=== PATIENT | female | born 1930 | race Hispanic/Latino ===

== ENCOUNTER 2017-07-25 14:40 | Inpatient (IN) | payer MEDICARE, BC ==
[2017-07-25 18:09] VITALS: BMI 34.5
--- NOTE | 2017-07-25 22:32 | CP.PCM.HP ---
<Jennifer Bridges - Last Filed: 07/25/17 23:46> History of Present Illness - History of Present Illness History of Present Illness: 86 y/o F with PMHx of HTN, HLD, and TIA ( 9-10 years ago) who was transferred from [facility] for rehabilitation. Patient was admitted in [facility] on 07[place]17 because she was c/o right side facial droop to r/o CVA. 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 Also elevated RPR was noted. Patient was seen and examined at bedside after transfer. Patient is seen alert, oriented x 3, talking with coherent speech, and without difficulty. Denies any complains at this evaluation. PMD: Dr. Osman Present on Admission - Present on Admission Any Indicators Present on Admission: No History of DVT/PE: No History of Uncontrolled Diabetes: No Urinary Catheter: No Decubitus Ulcer Present: No Review of Systems - Review of Systems All systems: reviewed and no additional remarkable complaints except (as per HPI ) Meds Allergies/Adverse Reactions: Allergies Allergy/AdvReac Type Severity Reaction Status Date / Time No Known Allergies Allergy Verified 07/25/17 17:54 Physical Exam - Constitutional Appears: Non-toxic, No Acute Distress - Eye Exam Eye Exam: Normal appearance - ENT Exam ENT Exam: Mucous Membranes Moist - Respiratory Exam Respiratory Exam: Clear to Auscultation Bilateral, NORMAL BREATHING PATTERN. absent: Rales, Rhonchi, Wheezes, Respiratory Distress - Cardiovascular Exam Cardiovascular Exam: REGULAR RHYTHM, RRR, +S1, +S2 - GI/Abdominal Exam GI & Abdominal Exam: Normal Bowel Sounds, Soft. absent: Guarding, Rebound, Rigid, Tenderness - Extremities Exam Extremities exam: Positive for: normal inspection. Negative for: calf tenderness, pedal edema - Back Exam Back exam: NORMAL INSPECTION. absent: CVA tenderness (L), CVA tenderness (R) - Neurological Exam Neurological exam: Alert, Oriented x3 - Psychiatric Exam Psychiatric exam: Normal Affect, Normal Mood - Skin Skin Exam: Dry, Intact, Normal Color Assessment & Plan - Assessment and Plan (Free Text) Assessment: 86 y/o F with PMHx of HTN, HLD, and TIA being admitted for rehabilitation. Plan: Gait abnormality and weakness -acute rehab unit -PT/OT evaluation and treatment CVA -stable -as per [facility] records Brain MRI showed small acute left frontoparietal infarct. No associated mass effect -normal CT angiogram head on 07/21/17 -as per records Head CT scan showed no evidence of acute findings -c/w meds -c/w aspirin and plavix -c/w atorvastatin -Neurology consult, Dr. Peck, as needed, will be appreciated RPR + - positive RPR noted in recent hospital admission at [facility] as per records -ID consult, Dr. Calderon, as needed, will be appreciated HTN -c/w lisinopril 5 mg HLD -c/w atorvastatin DVT prophylaxis Lovenox 40 mg SC - Date & Time Date: 07/25/17 Time: 22:35 <Jerome Osman - Last Filed: 07/26/17 07:02> Results - Vital Signs Recent Vital Signs: Last Vital Signs Temp Pulse 81 07/25/17 23:37 Resp 20 07/25/17 23:37 BP Pulse Ox 97 07/25/17 23:37 - Labs Result Diagrams: 07/26/17 05:15 07/26/17 05:15 Labs: Laboratory Results - last 24 hr 07/26/17 07/26/17 05:15 05:15 WBC 7.8 RBC 4.61 Hgb 13.3 Hct 40.2 MCV 87.2 MCH 28.8 MCHC 33.1 RDW 15.9 H Plt Count 202 Sodium 142 Potassium 4.0 Chloride 108 H Carbon Dioxide 26 Anion Gap 12 BUN 14 Creatinine 0.9 Est GFR ( Amer) > 60 Est GFR (Non-Af Amer) 59 Random Glucose 166 H Calcium 9.0 Attending/Attestation - Attestation I have personally seen and examined this patient.: Yes I have fully participated in the care of the patient.: Yes I have reviewed all pertinent clinical information: Yes
[2017-07-25] MEDS ORDERED: Patient's Own Med (Atorvastatin [Lipitor] 80 MG) PO SCH (22:45)
[2017-07-26 06:26] LABS: HEMATOCRIT 40.2 % (34.0-47.0); MEAN CELL VOLUME 87.2 fl (81.0-99.0); MEAN CORPUSCULAR HEMOGLOBIN 28.8 pg (27.0-31.0); MEAN CORPUSCULAR HGB CONC 33.1 g/dL (33.0-37.0); RED CELL DISTRIBUTION WIDTH 15.9 % (11.5-14.5); WHITE BLOOD COUNT 7.8 K/uL (4.8-10.8)
[2017-07-26 06:45] LABS: BLOOD UREA NITROGEN 14 mg/dl (7-17); CARBON DIOXIDE 26 mmol/L (22-30); CHLORIDE 108 mmol/L (98-107); GFR AFRICAN-AMERICAN > 60; GLUCOSE,RANDOM 166 mg/dL (65-105); SODIUM 142 mmol/l (132-148)
--- NOTE | 2017-07-26 08:24 | CP.PCM.PN ---
<TimboChicho - Last Filed: 07/26/17 12:11> Subjective - Date & Time of Evaluation Date of Evaluation: 07/26/17 Time of Evaluation: 07:00 - Subjective Subjective: 86 y/o F admitted last night, [place] [facility] [place]. Patient stable, talking in full sentences, coherent, not acute distress. Denies headache, dizziness, CP, palpitations. Will start PT treatment today. Objective - Vital Signs/Intake and Output Vital Signs (last 24 hours): Temp Pulse Resp BP Pulse Ox 81 20 97 07/25/17 23:37 07/25/17 23:37 07/25/17 23:37 - Medications Medications: Current Medications Acetaminophen (Tylenol 325mg Tab) 650 mg PO Q6 PRN PRN Reason: Headache Aspirin (Aspirin Chewable) 81 mg PO DAILY [facility] Atorvastatin Calcium (Lipitor) 80 mg PO HS [facility] Last Admin: 07/26/17 00:09 Dose: 80 mg Clopidogrel Bisulfate (Plavix) 75 mg PO DAILY [facility] Enoxaparin Sodium (Lovenox) 40 mg SC DAILY [facility] PRN Reason: Protocol Lisinopril (Zestril) 5 mg PO DAILY [facility] Pantoprazole Sodium (Protonix Ec Tab) 40 mg PO DAILY [facility] - Labs Labs: 07/26/17 05:15 07/26/17 05:15 - Constitutional Appears: Non-toxic, No Acute Distress - Head Exam Head Exam: ATRAUMATIC - Eye Exam Eye Exam: EOMI, Normal appearance - ENT Exam ENT Exam: Mucous Membranes Moist - Respiratory Exam Respiratory Exam: Clear to Ausculation Bilateral, NORMAL BREATHING PATTERN. absent: Rales, Wheezes - Cardiovascular Exam Cardiovascular Exam: REGULAR RHYTHM, +S1, +S2. absent: Murmur - GI/Abdominal Exam GI & Abdominal Exam: Soft, Normal Bowel Sounds. absent: Distended, Tenderness - Extremities Exam Extremities Exam: Normal Capillary Refill. absent: Calf Tenderness - Neurological Exam Neurological Exam: Alert, Awake, Oriented x3 Additional comments: Drop of the corner of the mouth to right side. Mild UE weakness. - Psychiatric Exam Psychiatric exam: Normal Affect, Normal Mood - Skin Skin Exam: Normal Color, Warm Assessment and Plan - Assessment and Plan (Free Text) Assessment: 86 y/o F with PMHx of HTN, HLD, and TIA being admitted for rehabilitation. Gait abnormality and generalized weakness -acute rehab unit for post stroke rehab -PT/OT evaluation and treatment CVA, acute, ischemic -stable -Brain MRI showed small acute left frontoparietal infarct. No associated mass effect -normal CT angiogram head on 07/21/17 -c/w meds -c/w aspirin and plavix -c/w atorvastatin -Neurology consulted. Will f/u recs RPR + -RPR + noted in [place] [facility] [place]FTA[place]AB[place] [facility] [place], results pending -ID consult, Dr. Calderon, as needed, will be appreciated HTN -Chronic, controlled -c/w lisinopril 5 mg Hx of HLD -c/w atorvastatin DVT prophylaxis -Lovenox 40 mg SC <Jerome Osman - Last Filed: 07/31/17 16:42> Objective - Vital Signs/Intake and Output Vital Signs (last 24 hours): Temp Pulse Resp BP Pulse Ox 97.5 F L 80 19 139/73 94 L 07/31/17 08:46 07/31/17 08:46 07/31/17 08:46 07/31/17 08:46 07/31/17 08:46 - Medications Medications: Current Medications Acetaminophen (Tylenol 325mg Tab) 650 mg PO Q6 PRN PRN Reason: Headache Al Hydrox/Mg Hydrox/Simethicone (Maalox Plus 30 Ml) 30 ml PO Q6 PRN PRN Reason: Indigestion / Heartburn Aspirin (Aspirin Chewable) 81 mg PO DAILY [facility] Last Admin: 07/31/17 08:38 Dose: 81 mg Atorvastatin Calcium (Lipitor) 80 mg PO HS [facility] Last Admin: 07/30/17 21:05 Dose: 80 mg Clopidogrel Bisulfate (Plavix) 75 mg PO DAILY [facility] Last Admin: 07/31/17 08:39 Dose: 75 mg Enoxaparin Sodium (Lovenox) 40 mg SC DAILY [facility] PRN Reason: Protocol Last Admin: 07/31/17 08:38 Dose: 40 mg Lisinopril (Zestril) 5 mg PO DAILY [facility] Last Admin: 07/31/17 08:39 Dose: 5 mg Pantoprazole Sodium (Protonix Ec Tab) 40 mg PO DAILY [facility] Last Admin: 07/31/17 08:38 Dose: 40 mg - Labs Labs: 07/29/17 05:30 07/29/17 06:30 Attending/Attestation - Attestation I have personally seen and examined this patient.: Yes I have fully participated in the care of the patient.: Yes I have reviewed all pertinent clinical information, including history, physical exam and plan: Yes
[2017-07-26] MEDS: Pantoprazole 40 mg EC Tab PO SCH (08:37)
[2017-07-26] MEDS: Enoxaparin 40 mg Syringe SC SCH (09:05)
--- NOTE | 2017-07-26 12:12 | CP.PCM.CON ---
History of Present Illness - History of Present Illness History of Present Illness: 86 y/o F with PMHx of HTN, HLD, and TIA ( 9-10 years ago) who was transferred from [facility] for rehabilitation. [place] [facility] [place] because she was c/o right side facial droop to r/o CVA. 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 Also elevated RPR was noted. Patient was seen and examined at bedside after transfer. Patient is seen alert, oriented x 3, talking with coherent speech, and without difficulty. Denies any complains at this evaluation. 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 from her Mom at time of and was reportedly treated without sequelae Titer was 1:2 fta-abs PENDING Review of Systems - Constitutional Constitutional: As Per HPI - EENT Eyes: absent: As Per HPI, Blind Spots, Blurred Vision, Change in Vision, Decreased Night Vision, Diplopia, Discharge, Dry Eye, Exophthalmos, Floaters, Irritation, Itchy Eyes, Loss of Peripheral Vision, Pain, Photophobia, Requires Corrective Lenses, Sees Flashes, Spots in Vision, Tunnel Vision, Other Visual Disturbances, Loss of Vision, Other Ears: absent: As Per HPI, Decreased Hearing, Ear Discharge, Ear Pain, Tinnitus, Abnormal Hearing, Disequilibrium, Dizziness, Other Nose/Mouth/Throat: absent: As Per HPI, Epistaxis, Nasal Congestion, Nasal Discharge, Nasal Obstruction, Nasal Trauma, Nose Pain, Post Nasal Drip, Sinus Pain, Sinus Pressure, Bleeding Gums, Change in Voice, Dental Pain, Dry Mouth, Dysphagia, Halitosis, Hoarsness, Lip Swelling, Mouth Lesions, Mouth Pain, Odynophagia, Sore Throat, Throat Swelling, Tongue Swelling, Facial Pain, Neck Pain, Neck Mass, Other - Breasts Breasts: absent: As Per HPI, Change in Shape, Mass, Pain, Nipple Discharge, Nipple Inversion, Skin Changes, Swelling, Other - Cardiovascular Cardiovascular: absent: As Per HPI, Acrocyanosis, Chest Pain, Chest Pain at Rest , Chest Pain with Activity, Claudication, Diaphoresis, Dyspnea, Dyspnea on Exertion, Edema, Irregular Heart Rhythm, Pain Radiating to Arm/Neck/Jaw, Leg Edema, Leg Ulcers, Lightheadedness, Orthopnea, Palpitations, Paroxysmal Nocturnal Dyspnea, Pedal Edema, Radiating Pain, Rapid Heart Rate, Slow Heart Rate, Syncope, Other - Respiratory Respiratory: absent: As Per HPI, Cough, Dyspnea, Hemoptysis, Dyspnea on Exertion , Wheezing, Snoring, Stridor, Pain on Inspiration, Chest Congestion, Excessive Mucous Production, Change in Mucous Color, Pain with Coughing, Other - Gastrointestinal Gastrointestinal: absent: As Per HPI, Abdominal Pain, Belching, Bloating, Change in Bowel Habits, Change in Stool Character, Coffee Ground Emesis, Constipation, Cramping, Diarrhea, Dyspepsia, Dysphagia, Early Satiety, Excessive Flatus, Fecal Incontinence, Heartburn, Hematemesis, Hematochezia, Loose Stools, Melena, Nausea, Odynophagia, Temesmus, Vomiting, Other - Genitourinary Genitourinary: absent: As Per HPI, Change in Urinary Stream, Difficulty Urinating, Dysuria, Flank Pain, Hematuria, Pyuria, Nocturia, Urinary Incontinence, Urinary Frequency, Urinary Hesitance, Urinary Urgency, Voiding Freq/Small Amts, Freq UTI, Hx Renal/Bladder Calculi, Hx /Renal Surgery, Bladder Distension, Other - Reproductive: Female Reproductive:Female: absent: As Per HPI, Amenorrhea, Amenorrhea/ Control, Currently Menstual, Cycle <21 Days, Cycle >35 Days, Cycle Variable, Menses 1-7 Days, Menses >/= 8 Days, Menses Variable, Cycle > 4 Weeks Between, No Menses for 6 Months, Heavy Menses, Light Menses, Normal Menses, Spotting Between Cycles , S/P Hysterectomy, Menopausal, Post Menopausal, Premenarche, Abnormal Vaginal Bleeding, Dysmenorrhea, Dyspareunia, Genital Lesions, Genital Pruritis, Pelvic Pain, Prolapse Symptoms, Sexual Dysfunction, Vaginal Discharge, Vaginal Dryness , Vaginal Odor, Vaginal Pruritis, Other - Menstruation Menstruation: absent: As Per HPI, Amenorrhea, Amenorrhea/ Control, Currently Menstual, Cycle <21 Days, Cycle >35 Days, Cycle Variable, Menses 1-7 Days, Menses >/= 8 Days, Menses Variable, Cycle > 4 Weeks Between, No Menses for 6 Months, Heavy Menses, Light Menses, Normal Menses, Spotting Between Cycles , S/P Hysterectomy, Menopausal, Post Menopausal, Premenarche, Abnormal Vaginal Bleeding, Dysmenorrhea, Other - Musculoskeletal Musculoskeletal: absent: As Per HPI, Abnormal Gait, Arthralgias, Atrophy, Back Pain, Deformity, Joint Swelling, Limited Range of Motion, Loss of Height, Muscle Cramps, Muscle Weakness, Myalgias, Neck Pain, Numbness, Radiating Pain into Limb, Stiffness, Tingling, Other - Integumentary Integumentary: absent: As Per HPI, Acne, Alopecia, Bleeding Lesions, Change in Hair, Change in Nails, Change in Pigmentation, Changing Lesions, Dry Skin, Erythema, Furuncle, Hirsutism, Lesions, New Lesions, Non-Healing Lesions, Photosensitivity, Pruritus, Rash, Skin Pain, Skin Ulcer, Sores, Striae, Swelling , Unusual Bruising, Wounds, Jaundice, Other - Neurological Neurological: As Per HPI. absent: Abnormal Gait, Abnormal Hearing, Abnormal Movements, Abnormal Speech, Behavioral Changes, Burning Sensations, Confusion, Convulsions, Disequilibrium, Dizziness, Numbness, Focal Weakness, Frequent Falls , Headaches, Lack of Coordination, Loss of Vision, Memory Loss, Paresthesias, Radicular Pain, Restless Legs, Sensory Deficit, Syncope, Tingling, Tremor, Vertigo, Weakness, Other Visual Disturbances, Other - Psychiatric Psychiatric: absent: As Per HPI, Abnormal Sleep Pattern, Anhedonia, Anxiety, Auditory Hallucinations, Behavioral Changes, Change in Appetite, Change in Libido, Confusion, Depression, Difficulty Concentrating, Hallucinations, Homicidal Ideation, Hopelessness, Irritability, Memory Loss, Mood Swings, Panic Attacks, Paranoia, Suicidal Ideation, Visual Hallucinations, Tactile Hallucinations, Other - Endocrine Endocrine: absent: As Per HPI, Change in Body Appearance, Change in Libido, Cold Intolorance, Deepening of Voice, Excessive Sweating, Fatigue, Flushing, Heat Intolorance, Increase in Ring/Shoe/Hat Size, Palpitations, Polydipsia, Polyphagia, Polyuria, Other - Hematologic/Lymphatic Hematologic: absent: As Per HPI, Easy Bleeding, Easy Bruising, Lymphadenopathy, Other Past Patient History - Past Medical History & Family History Past Medical History?: Yes - Past Social History Smoking Status: Never Smoked - CARDIAC Hx Hypercholesterolemia: Yes Hx Hypertension: Yes - NEUROLOGICAL Hx Transient Ischemic Attacks (TIA): Yes - HEMATOLOGICAL/ONCOLOGICAL Hx AIDS: No Hx Human Immunodeficiency Virus (HIV): No - MUSCULOSKELETAL/RHEUMATOLOGICAL Hx Falls: No - GENITOURINARY/GYNECOLOGICAL Other/Comment: RPR+ R/o Syphilis - PSYCHIATRIC Hx Substance Use: No - SURGICAL HISTORY Hx Cholecystectomy: Yes Hx Hysterectomy: Yes - ANESTHESIA Hx Anesthesia: Yes Hx Anesthesia Reactions: No Hx Malignant Hyperthermia: No Has any member of the family had a problem w/ anesthesia?: No Meds Allergies/Adverse Reactions: Allergies Allergy/AdvReac Type Severity Reaction Status Date / Time No Known Allergies Allergy Verified 07/25/17 17:54 - Medications Medications: Current Medications Acetaminophen (Tylenol 325mg Tab) 650 mg PO Q6 PRN PRN Reason: Headache Aspirin (Aspirin Chewable) 81 mg PO DAILY [facility] Last Admin: 07/26/17 08:37 Dose: 81 mg Atorvastatin Calcium (Lipitor) 80 mg PO HS [facility] Last Admin: 07/26/17 00:09 Dose: 80 mg Clopidogrel Bisulfate (Plavix) 75 mg PO DAILY [facility] Last Admin: 07/26/17 08:37 Dose: 75 mg Enoxaparin Sodium (Lovenox) 40 mg SC DAILY [facility] PRN Reason: Protocol Last Admin: 07/26/17 09:05 Dose: 40 mg Lisinopril (Zestril) 5 mg PO DAILY [facility] Last Admin: 07/26/17 08:36 Dose: 5 mg Pantoprazole Sodium (Protonix Ec Tab) 40 mg PO DAILY [facility] Last Admin: 07/26/17 08:37 Dose: 40 mg Physical Exam - Constitutional Appears: Non-toxic, Chronically Ill - Head Exam Head Exam: NORMOCEPHALIC - Eye Exam Eye Exam: PERRL. absent: Scleral icterus - ENT Exam ENT Exam: Mucous Membranes Dry, Normal External Ear Exam - Neck Exam Neck exam: Negative for: Lymphadenopathy - Respiratory Exam Respiratory Exam: Decreased Breath Sounds - Cardiovascular Exam Cardiovascular Exam: REGULAR RHYTHM - GI/Abdominal Exam GI & Abdominal Exam: Diminished Bowel Sounds, Soft. absent: Tenderness - Rectal Exam Rectal Exam: Deferred - Exam Exam: NORMAL INSPECTION - Extremities Exam Extremities exam: Negative for: pedal edema - Back Exam Back exam: absent: CVA tenderness (L), CVA tenderness (R) - Neurological Exam Neurological exam: Alert, CN II-XII Intact, Oriented x3, Reflexes Normal - Psychiatric Exam Psychiatric exam: Depressed Results - Vital Signs Recent Vital Signs: Last Vital Signs Temp 97.6 F 07/26/17 08:26 Pulse 68 07/26/17 08:26 Resp 22 07/26/17 08:26 BP 142/81 07/26/17 08:36 Pulse Ox 97 07/26/17 08:26 - Labs Result Diagrams: 07/26/17 05:15 07/26/17 05:15 Labs: Laboratory Results - last 24 hr 07/26/17 07/26/17 05:15 05:15 WBC 7.8 RBC 4.61 Hgb 13.3 Hct 40.2 MCV 87.2 MCH 28.8 MCHC 33.1 RDW 15.9 H Plt Count 202 Sodium 142 Potassium 4.0 Chloride 108 H Carbon Dioxide 26 Anion Gap 12 BUN 14 Creatinine 0.9 Est GFR ( Amer) > 60 Est GFR (Non-Af Amer) 59 Random Glucose 166 H Calcium 9.0 Assessment & Plan (1) Positive RPR test Status: Acute - Assessment and Plan (Free Text) Assessment: S/P cva + RPR - PROBABLY UNRELATED AWAIT FTA-ABS DR Radames MORAN TO [facility] FOR LP
--- NOTE | 2017-07-26 12:55 | CP.PCM.CON ---
History of Present Illness - History of Present Illness History of Present Illness: Dr Diego PMR consultation on Leslie Gaffney, born 1930, right hand dominant who has been admitted to [facility] acute inpatient rehabilitation following an admission for left CVA and right HP. She has stabilized and has been admitted Review of Systems - Constitutional Constitutional: absent: Chills, Daytime Sleepiness - EENT Eyes: absent: Change in Vision Ears: absent: Ear Discharge Nose/Mouth/Throat: absent: Nasal Congestion - Breasts Breasts: absent: Skin Changes - Cardiovascular Cardiovascular: absent: Chest Pain - Respiratory Respiratory: absent: Dyspnea, Hemoptysis - Gastrointestinal Gastrointestinal: absent: Abdominal Pain, Cramping - Musculoskeletal Musculoskeletal: absent: Back Pain - Integumentary Integumentary: absent: Bleeding Lesions - Neurological Neurological: absent: Abnormal Movements, Radicular Pain, Syncope Past Patient History - Past Medical History & Family History Past Medical History?: Yes - Past Social History Smoking Status: Never Smoked Alcohol: Occasional Drugs: Denies Home Situation {Lives}: With Family - CARDIAC Hx Hypercholesterolemia: Yes Hx Hypertension: Yes - NEUROLOGICAL Hx Transient Ischemic Attacks (TIA): Yes - HEMATOLOGICAL/ONCOLOGICAL Hx AIDS: No Hx Human Immunodeficiency Virus (HIV): No - MUSCULOSKELETAL/RHEUMATOLOGICAL Hx Falls: No - GENITOURINARY/GYNECOLOGICAL Other/Comment: RPR+ R/o Syphilis - PSYCHIATRIC Hx Substance Use: No - SURGICAL HISTORY Hx Cholecystectomy: Yes Hx Hysterectomy: Yes - ANESTHESIA Hx Anesthesia: Yes Hx Anesthesia Reactions: No Hx Malignant Hyperthermia: No Has any member of the family had a problem w/ anesthesia?: No Meds Allergies/Adverse Reactions: Allergies Allergy/AdvReac Type Severity Reaction Status Date / Time No Known Allergies Allergy Verified 07/25/17 17:54 - Medications Medications: Current Medications Acetaminophen (Tylenol 325mg Tab) 650 mg PO Q6 PRN PRN Reason: Headache Aspirin (Aspirin Chewable) 81 mg PO DAILY [facility] Last Admin: 07/26/17 08:37 Dose: 81 mg Atorvastatin Calcium (Lipitor) 80 mg PO HS [facility] Last Admin: 07/26/17 00:09 Dose: 80 mg Clopidogrel Bisulfate (Plavix) 75 mg PO DAILY [facility] Last Admin: 07/26/17 08:37 Dose: 75 mg Enoxaparin Sodium (Lovenox) 40 mg SC DAILY [facility] PRN Reason: Protocol Last Admin: 07/26/17 09:05 Dose: 40 mg Lisinopril (Zestril) 5 mg PO DAILY [facility] Last Admin: 07/26/17 08:36 Dose: 5 mg Pantoprazole Sodium (Protonix Ec Tab) 40 mg PO DAILY [facility] Last Admin: 07/26/17 08:37 Dose: 40 mg Physical Exam - Constitutional Appears: Non-toxic, No Acute Distress - Head Exam Head Exam: ATRAUMATIC, NORMAL INSPECTION, NORMOCEPHALIC - Eye Exam Eye Exam: EOMI - ENT Exam ENT Exam: Mucous Membranes Moist - Neck Exam Neck exam: Negative for: Lymphadenopathy - Respiratory Exam Respiratory Exam: NORMAL BREATHING PATTERN - Cardiovascular Exam Cardiovascular Exam: REGULAR RHYTHM - GI/Abdominal Exam GI & Abdominal Exam: Normal Bowel Sounds - Extremities Exam Extremities exam: Positive for: full ROM, normal inspection - Neurological Exam Neurological exam: Alert, CN II-XII Intact, Oriented x3 - Psychiatric Exam Psychiatric exam: Normal Affect, Normal Mood Results - Vital Signs Recent Vital Signs: Last Vital Signs Temp 97.6 F 07/26/17 08:26 Pulse 68 07/26/17 08:26 Resp 22 07/26/17 08:26 BP 142/81 07/26/17 08:36 Pulse Ox 97 07/26/17 08:26 - Labs Result Diagrams: 07/26/17 05:15 07/26/17 05:15 Labs: Laboratory Results - last 24 hr 07/26/17 07/26/17 05:15 05:15 WBC 7.8 RBC 4.61 Hgb 13.3 Hct 40.2 MCV 87.2 MCH 28.8 MCHC 33.1 RDW 15.9 H Plt Count 202 Sodium 142 Potassium 4.0 Chloride 108 H Carbon Dioxide 26 Anion Gap 12 BUN 14 Creatinine 0.9 Est GFR ( Amer) > 60 Est GFR (Non-Af Amer) 59 Random Glucose 166 H Calcium 9.0 Assessment & Plan - Assessment and Plan (Free Text) Assessment: PT/OT to continue to help increase functional independence Team conference for d/c planning Pain: controlled Vascular: no evidence of DVT GI: No evidence of constipation or diarrhea Patient is an excellent acute rehabilitation candidate and will have focused PT , OT and recreational therapy to help facilitate a safe and appropriate d/c plan Impairment code 01.2
--- NOTE | 2017-07-26 13:09 | PCM.OPOC ---
Physiatry Overall Plan of Care - Overall Plan of Care Estimated Length of Stay in Weeks: 1 Rehab Impairment: Mobility, Gait, Balance Etiologic Diagnosis: Cerebrovascular Accident Rehab/Medical Prognosis: Good - Anticipated Interventions Physical Therapy:: Yes Occupational Therapy:: Yes Speech Therapy:: No Recreational Therapy:: Yes - Therapy Goals Bed Mobility: Supervision Ambulation: Supervision Functional Positional Changes:: Supervision - Discharge Plan Discharge Destination: Home
[2017-07-26 20:52] LABS: RAPID PLASMA REAGIN REACTIVE (NONREACTIVE)
[2017-07-27] MEDS: Pantoprazole 40 mg EC Tab PO SCH (08:54)
[2017-07-27] MEDS: Enoxaparin 40 mg Syringe SC SCH (08:54)
--- NOTE | 2017-07-27 09:48 | CP.PCM.PN ---
<Chicho Izquierdo - Last Filed: 07/27/17 09:59> Subjective - Date & Time of Evaluation Date of Evaluation: 07/27/17 Time of Evaluation: 07:10 - Subjective Subjective: 86 y/o seen at bedside today in good spirits. She is more alert Today and talkative. States she feels good. Denies CP, SOB, headache, numbness, changes in urination or stools. Last BM yesterday. Objective - Vital Signs/Intake and Output Vital Signs (last 24 hours): Temp Pulse Resp BP Pulse Ox 96.9 F L 90 20 136/68 96 07/27/17 08:22 07/27/17 08:54 07/27/17 08:22 07/27/17 08:54 07/27/17 08:22 - Medications Medications: Current Medications Acetaminophen (Tylenol 325mg Tab) 650 mg PO Q6 PRN PRN Reason: Headache Aspirin (Aspirin Chewable) 81 mg PO DAILY [facility] Last Admin: 07/27/17 08:54 Dose: 81 mg Atorvastatin Calcium (Lipitor) 80 mg PO HS [facility] Last Admin: 07/26/17 21:15 Dose: 80 mg Clopidogrel Bisulfate (Plavix) 75 mg PO DAILY [facility] Last Admin: 07/27/17 08:54 Dose: 75 mg Enoxaparin Sodium (Lovenox) 40 mg SC DAILY [facility] PRN Reason: Protocol Last Admin: 07/27/17 08:54 Dose: 40 mg Lisinopril (Zestril) 5 mg PO DAILY [facility] Last Admin: 07/27/17 08:54 Dose: 5 mg Pantoprazole Sodium (Protonix Ec Tab) 40 mg PO DAILY [facility] Last Admin: 07/27/17 08:54 Dose: 40 mg - Labs Labs: 07/26/17 05:15 07/26/17 05:15 - Constitutional Appears: Non-toxic, No Acute Distress - Eye Exam Eye Exam: EOMI, PERRL - ENT Exam ENT Exam: Mucous Membranes Moist - Neck Exam Neck Exam: Full ROM - Respiratory Exam Respiratory Exam: Clear to Ausculation Bilateral, NORMAL BREATHING PATTERN. absent: Rales, Wheezes - Cardiovascular Exam Cardiovascular Exam: REGULAR RHYTHM, +S1, +S2. absent: Murmur - GI/Abdominal Exam GI & Abdominal Exam: Soft, Normal Bowel Sounds. absent: Tenderness - Extremities Exam Extremities Exam: Normal Capillary Refill. absent: Calf Tenderness - Neurological Exam Neurological Exam: Alert, Awake, Oriented x3 Neuro motor strength exam: Left Upper Extremity: 4, Right Upper Extremity: 4, Left Lower Extremity: 4, Right Lower Extremity: 3 - Psychiatric Exam Psychiatric exam: Normal Affect, Normal Mood - Skin Skin Exam: Normal Color, Warm Assessment and Plan - Assessment and Plan (Free Text) Assessment: 86 y/o F with PMHx of HTN, HLD, and TIA being admitted for rehabilitation. Gait abnormality and generalized weakness -acute rehab unit for post stroke rehab -PT/OT evaluation and treatment CVA, acute, ischemic -stable -Strength seems improved compared to Yesterday -Brain MRI showed small acute left frontoparietal infarct. No associated mass effect -c/w meds -c/w aspirin and plavix -c/w atorvastatin -Neurology consulted. Will f/u recs RPR + -RPR +. 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 F/U results -ID consult, Dr. Calderon appreciated HTN -Chronic, controlled -c/w lisinopril 5 mg Hx of HLD -c/w atorvastatin DVT prophylaxis -Lovenox 40 mg SC <Spencer Velez - Last Filed: 07/28/17 06:48> Objective - Vital Signs/Intake and Output Vital Signs (last 24 hours): Temp Pulse Resp BP Pulse Ox 97.0 F L 83 20 137/84 97 07/27/17 19:56 07/27/17 19:56 07/27/17 19:56 07/27/17 19:56 07/27/17 19:56 - Medications Medications: Current Medications Acetaminophen (Tylenol 325mg Tab) 650 mg PO Q6 PRN PRN Reason: Headache Aspirin (Aspirin Chewable) 81 mg PO DAILY [facility] Last Admin: 07/27/17 08:54 Dose: 81 mg Atorvastatin Calcium (Lipitor) 80 mg PO HS [facility] Last Admin: 07/27/17 21:17 Dose: 80 mg Clopidogrel Bisulfate (Plavix) 75 mg PO DAILY [facility] Last Admin: 07/27/17 08:54 Dose: 75 mg Enoxaparin Sodium (Lovenox) 40 mg SC DAILY [facility] PRN Reason: Protocol Last Admin: 07/27/17 08:54 Dose: 40 mg Lisinopril (Zestril) 5 mg PO DAILY [facility] Last Admin: 07/27/17 08:54 Dose: 5 mg Pantoprazole Sodium (Protonix Ec Tab) 40 mg PO DAILY [facility] Last Admin: 07/27/17 08:54 Dose: 40 mg - Labs Labs: 07/26/17 05:15 07/26/17 05:15 Attending/Attestation - Attestation I have personally seen and examined this patient.: Yes I have fully participated in the care of the patient.: Yes I have reviewed all pertinent clinical information, including history, physical exam and plan: Yes
--- NOTE | 2017-07-27 23:56 | CON ---
NEUROLOGY CONSULTATION DATE: REASON FOR CONSULTATION: Stroke. HISTORY OF PRESENT ILLNESS: The patient is an 86-year-old female, who was admitted in [facility] after she was noted to have a drooping of the right side of the face as well as some mild right-sided weakness. Her initial CT scan of the head did not show any acute infarct; however, subsequently MRI of the brain was done and it showed an acute infarct. The patient was also noted to have positive RPR. The patient was transferred to [facility] for rehabilitation. The patient denies to have any headache or dizziness, said her right-sided weakness is improving. She also said that her swallowing is fine. Denies any other complaints. REVIEW OF SYSTEMS: Denies any headache, dizziness, chest pain, shortness of breath, abdominal pain, constipation, diarrhea, dysuria, cough, or sputum production. PAST MEDICAL HISTORY: Includes hypertension, hypercholesterolemia, transient ischemic attack. CURRENT MEDICATIONS: Include aspirin 81 mg, Lipitor 80 mg, Plavix 75 mg, pantoprazole, Tylenol, and lisinopril. ALLERGIES: NO KNOWN DRUG ALLERGIES. SOCIAL HISTORY: She denies smoking, use of alcohol or illicit drugs. FAMILY HISTORY: Reviewed and noncontributory to the case. PHYSICAL EXAMINATION: GENERAL: The patient is an elderly pleasant female sitting in no acute distress. VITAL SIGNS: Her blood pressure is 136/68, heart rate is 90 per minute, breathing at the rate of 16 per minute, temperature 96.9 degree Fahrenheit. HEENT: Head normocephalic, atraumatic. NECK: Supple. There are no carotid bruits. LUNGS: Clear. CARDIOVASCULAR: S1 and S2 are audible. No murmurs. ABDOMEN: Soft, nontender. Bowel sounds are present. NEUROLOGY EXAMINATION: Mental status: The patient is awake, alert and oriented to time, place and person. Her speech is fluent. Naming and repetition normal. Memory and cognition are intact. Cranial nerve examination: Pupils are 3 mm, bilaterally reactive to light. Visual mcleod are full. Extraocular movements are intact. There is very mild decreased nasolabial fold on the right side. Palate is upgoing bilaterally and tongue is midline. Motor examination: Tone is normal. Power is 5/5 on the left side and -5/5 on the right side. Reflexes 1+ and symmetrical. Plantars downgoing bilaterally. Cerebellar examination: [id number] shows no dysmetria. Gait is deferred at the moment. LABORATORY DATA: Labs reviewed shows WBC of 7.8, hemoglobin of 13.3, hematocrit 40.2, and platelets of 202. Sodium is 142, potassium 4.0, chloride 108, carbon dioxide 26, BUN of 14, creatinine of 0.9, and glucose of 166. Her RPR is reactive, 1:4. IMPRESSION: 1. Cerebrovascular accident. 2. Positive RPR. RECOMMENDATION: 1. The patient to have fluorescent treponemal antibody testing. 2. The patient to be continued on aspirin and Plavix. 3. The patient also to be continued on high dose of statin. 4. The patient to have physical therapy. 5. The patient has shown improvement in her right-sided weakness and facial weakness. 6. If the patient's FTA comes out to be positive, then she may require lumbar puncture. The patient agrees. 7. Please continue supportive care and other treatment. Thank you for the opportunity to participate in the care of this patient. Kobe Peck MD
[2017-07-28] MEDS: Enoxaparin 40 mg Syringe SC SCH (08:50)
[2017-07-28] MEDS: Pantoprazole 40 mg EC Tab PO SCH (08:50)
--- NOTE | 2017-07-28 12:24 | CP.PCM.PN ---
<TimboChicho - Last Filed: 07/28/17 12:30> Subjective - Date & Time of Evaluation Date of Evaluation: 07/28/17 Time of Evaluation: 10:05 - Subjective Subjective: 86 y/o F seen at bedside in not acute distress, in good spirits. Denies SOB, CP , palpitations, abd pain, vomiting or nausea. NO changes in urination or stools. Patient receiving PT everyday and "doing well". Objective - Vital Signs/Intake and Output Vital Signs (last 24 hours): Temp Pulse Resp BP Pulse Ox 97.7 F 81 20 149/76 96 07/28/17 08:17 07/28/17 08:50 07/28/17 08:17 07/28/17 08:50 07/28/17 08:17 - Medications Medications: Current Medications Acetaminophen (Tylenol 325mg Tab) 650 mg PO Q6 PRN PRN Reason: Headache Aspirin (Aspirin Chewable) 81 mg PO DAILY [facility] Last Admin: 07/28/17 08:50 Dose: 81 mg Atorvastatin Calcium (Lipitor) 80 mg PO HS [facility] Last Admin: 07/27/17 21:17 Dose: 80 mg Clopidogrel Bisulfate (Plavix) 75 mg PO DAILY [facility] Last Admin: 07/28/17 08:50 Dose: 75 mg Enoxaparin Sodium (Lovenox) 40 mg SC DAILY [facility] PRN Reason: Protocol Last Admin: 07/28/17 08:50 Dose: 40 mg Lisinopril (Zestril) 5 mg PO DAILY [facility] Last Admin: 07/28/17 08:50 Dose: 5 mg Pantoprazole Sodium (Protonix Ec Tab) 40 mg PO DAILY [facility] Last Admin: 07/28/17 08:50 Dose: 40 mg - Labs Labs: 07/26/17 05:15 07/26/17 05:15 - Constitutional Appears: Non-toxic, No Acute Distress - Eye Exam Eye Exam: Normal appearance - ENT Exam ENT Exam: Mucous Membranes Moist - Respiratory Exam Respiratory Exam: Clear to Ausculation Bilateral, NORMAL BREATHING PATTERN. absent: Rales, Rhonchi, Wheezes - Cardiovascular Exam Cardiovascular Exam: REGULAR RHYTHM, +S1, +S2 - GI/Abdominal Exam GI & Abdominal Exam: Soft, Normal Bowel Sounds. absent: Distended, Guarding, Tenderness - Extremities Exam Extremities Exam: Normal Capillary Refill. absent: Calf Tenderness, Pedal Edema - Neurological Exam Neurological Exam: Alert, Awake, Oriented x3 Neuro motor strength exam: Left Upper Extremity: 4, Right Upper Extremity: 3, Left Lower Extremity: 4, Right Lower Extremity: 3 Additional comments: Mild drop of the corner of the mouth to R/side - Psychiatric Exam Psychiatric exam: Normal Affect, Normal Mood - Skin Skin Exam: Normal Color, Warm Assessment and Plan - Assessment and Plan (Free Text) Assessment: 86 y/o F with PMHx of HTN, HLD, and TIA being admitted for rehabilitation. Gait abnormality and generalized weakness -acute rehab unit for post stroke rehab -PT/OT evaluation and treatment CVA, acute, ischemic -stable -Strength improved -Brain MRI showed small acute left frontoparietal infarct. No associated mass effect -c/w current plan -Neurology consulted. Will f/u recs DM [place] [facility]. -No previous Hx of DM -Accuchecks -Will monitor to see if patient needs pharmacologic treatment while in the hospital -Diet adjusted RPR + -RPR +. 1/4 titters -As per patient this is chronic "transferred from mother" -FTA-ABS ordered. F/U results -ID consult, Dr. Calderon appreciated HTN -Chronic, controlled -c/w lisinopril 5 mg Hx of HLD -c/w atorvastatin DVT prophylaxis -Lovenox 40 mg SC <Jerome Osman - Last Filed: 07/31/17 16:45> Objective - Vital Signs/Intake and Output Vital Signs (last 24 hours): Temp Pulse Resp BP Pulse Ox 97.5 F L 80 19 139/73 94 L 07/31/17 08:46 07/31/17 08:46 07/31/17 08:46 07/31/17 08:46 07/31/17 08:46 - Medications Medications: Current Medications Acetaminophen (Tylenol 325mg Tab) 650 mg PO Q6 PRN PRN Reason: Headache Al Hydrox/Mg Hydrox/Simethicone (Maalox Plus 30 Ml) 30 ml PO Q6 PRN PRN Reason: Indigestion / Heartburn Aspirin (Aspirin Chewable) 81 mg PO DAILY [facility] Last Admin: 07/31/17 08:38 Dose: 81 mg Atorvastatin Calcium (Lipitor) 80 mg PO HS [facility] Last Admin: 07/30/17 21:05 Dose: 80 mg Clopidogrel Bisulfate (Plavix) 75 mg PO DAILY [facility] Last Admin: 07/31/17 08:39 Dose: 75 mg Enoxaparin Sodium (Lovenox) 40 mg SC DAILY [facility] PRN Reason: Protocol Last Admin: 07/31/17 08:38 Dose: 40 mg Lisinopril (Zestril) 5 mg PO DAILY [facility] Last Admin: 07/31/17 08:39 Dose: 5 mg Pantoprazole Sodium (Protonix Ec Tab) 40 mg PO DAILY [facility] Last Admin: 07/31/17 08:38 Dose: 40 mg - Labs Labs: 07/29/17 05:30 07/29/17 06:30 Attending/Attestation - Attestation I have personally seen and examined this patient.: Yes I have fully participated in the care of the patient.: Yes I have reviewed all pertinent clinical information, including history, physical exam and plan: Yes
--- NOTE | 2017-07-28 15:08 | CP.PCM.PN ---
Subjective - Date & Time of Evaluation Date of Evaluation: 07/28/17 Time of Evaluation: 14:47 - Subjective Subjective: Patient seen in PT and doing quite well. no pain She is able to ambulate with contact guard to CS without an AD no CP or SOB continue current care Objective - Vital Signs/Intake and Output Vital Signs (last 24 hours): Temp Pulse Resp BP Pulse Ox 97.7 F 81 20 149/76 96 07/28/17 08:17 07/28/17 08:50 07/28/17 08:17 07/28/17 08:50 07/28/17 08:17 - Medications Medications: Current Medications Acetaminophen (Tylenol 325mg Tab) 650 mg PO Q6 PRN PRN Reason: Headache Aspirin (Aspirin Chewable) 81 mg PO DAILY [facility] Last Admin: 07/28/17 08:50 Dose: 81 mg Atorvastatin Calcium (Lipitor) 80 mg PO HS [facility] Last Admin: 07/27/17 21:17 Dose: 80 mg Clopidogrel Bisulfate (Plavix) 75 mg PO DAILY [facility] Last Admin: 07/28/17 08:50 Dose: 75 mg Enoxaparin Sodium (Lovenox) 40 mg SC DAILY [facility] PRN Reason: Protocol Last Admin: 07/28/17 08:50 Dose: 40 mg Lisinopril (Zestril) 5 mg PO DAILY [facility] Last Admin: 07/28/17 08:50 Dose: 5 mg Pantoprazole Sodium (Protonix Ec Tab) 40 mg PO DAILY [facility] Last Admin: 07/28/17 08:50 Dose: 40 mg - Labs Labs: 07/26/17 05:15 07/26/17 05:15
[2017-07-29 07:17] LABS: HEMATOCRIT 37.9 % (34.0-47.0); MEAN CELL VOLUME 87.7 fl (81.0-99.0); MEAN CORPUSCULAR HEMOGLOBIN 28.5 pg (27.0-31.0); MEAN CORPUSCULAR HGB CONC 32.5 g/dL (33.0-37.0); WHITE BLOOD COUNT 6.7 K/uL (4.8-10.8)
[2017-07-29 07:41] LABS: BLOOD UREA NITROGEN 18 mg/dl (7-17); CALCIUM 8.9 mg/dL (8.4-10.2); CARBON DIOXIDE 27 mmol/L (22-30); CHLORIDE 107 mmol/L (98-107); GFR AFRICAN-AMERICAN > 60; GLUCOSE,RANDOM 153 mg/dL (65-105); SODIUM 141 mmol/l (132-148)
[2017-07-29] MEDS: Enoxaparin 40 mg Syringe SC SCH (08:22)
[2017-07-29] MEDS: Pantoprazole 40 mg EC Tab PO SCH (08:22)
--- NOTE | 2017-07-29 13:17 | PN ---
NEUROLOGY PROGRESS NOTE DATE: SUBJECTIVE: The patient is sitting on a chair, in no acute distress. Denies having any headache or dizziness. PHYSICAL EXAMINATION: VITAL SIGNS: Her blood pressure is 147/75, heart rate is 72 per minute, breathing at the rate of 16 per minute, temperature is 97.2 degrees Fahrenheit. HEENT: Head is normocephalic, atraumatic. NECK: Supple. There are no carotid bruits. LUNGS: Clear. CARDIOVASCULAR SYSTEM: S1 and S2 are audible. No murmurs. ABDOMEN: Soft and nontender. Bowel sounds present. NEUROLOGY: Mental status: The patient is awake, alert, oriented to time, place and person. Speech is fluent. Naming and repetition normal. Memory and cognition are intact. Cranial nerve examination: Pupils are 3 mm, minimally reactive to light. Visual mcleod are full. Extraocular movements are intact. There is mild decreased nasolabial fold on the right side. Tongue is midline. Motor examination: Tone is normal. Power is 5/5 on the left side and -5/5 on the right side. Gait is deferred at the moment. [id number] shows no dysmetria. IMPRESSION: 1. Cerebrovascular accident. 2. Positive RPR. RECOMMENDATION: 1. The patient's fluorescent treponemal antibody is nonreactive. 2. The patient to be continued on aspirin and Plavix. 3. The patient also to be continued on high dose of statin. 4. The patient to have physical therapy. 5. The patient is feeling better, however, just unsteady when she walks according to her. Will require further physical therapy. 6. Please continue supportive care and other treatment. Thank you for the opportunity to participate in the care of this patient. Kobe Peck MD
[2017-07-29] MEDS ORDERED: Alum-Mag Hydrox-Simethicone Susp (30 mL) PO PRN (22:10)
[2017-07-30] MEDS: Pantoprazole 40 mg EC Tab PO SCH (08:36)
[2017-07-30] MEDS: Enoxaparin 40 mg Syringe SC SCH (08:37)
--- NOTE | 2017-07-30 13:01 | CP.PCM.PN ---
Subjective - Date & Time of Evaluation Date of Evaluation: 07/30/17 Time of Evaluation: 07:00 - Subjective Subjective: FTA-ABS IS NON REACTIVE NO RX NECESSARY Objective - Vital Signs/Intake and Output Vital Signs (last 24 hours): Temp Pulse Resp BP Pulse Ox 98.1 F 76 18 158/63 H 97 07/30/17 08:37 07/30/17 08:37 07/30/17 08:37 07/30/17 08:37 07/30/17 08:37 - Medications Medications: Current Medications Acetaminophen (Tylenol 325mg Tab) 650 mg PO Q6 PRN PRN Reason: Headache Al Hydrox/Mg Hydrox/Simethicone (Maalox Plus 30 Ml) 30 ml PO Q6 PRN PRN Reason: Indigestion / Heartburn Aspirin (Aspirin Chewable) 81 mg PO DAILY [facility] Last Admin: 07/30/17 08:36 Dose: 81 mg Atorvastatin Calcium (Lipitor) 80 mg PO HS [facility] Last Admin: 07/29/17 21:20 Dose: 80 mg Clopidogrel Bisulfate (Plavix) 75 mg PO DAILY [facility] Last Admin: 07/30/17 08:36 Dose: 75 mg Enoxaparin Sodium (Lovenox) 40 mg SC DAILY [facility] PRN Reason: Protocol Last Admin: 07/30/17 08:37 Dose: 40 mg Lisinopril (Zestril) 5 mg PO DAILY [facility] Last Admin: 07/30/17 08:37 Dose: 5 mg Pantoprazole Sodium (Protonix Ec Tab) 40 mg PO DAILY [facility] Last Admin: 07/30/17 08:36 Dose: 40 mg - Labs Labs: 07/29/17 05:30 07/29/17 06:30 - Constitutional Appears: Non-toxic - Head Exam Head Exam: NORMOCEPHALIC - Eye Exam Eye Exam: absent: Scleral icterus - ENT Exam ENT Exam: Mucous Membranes Dry - Neck Exam Neck Exam: absent: Lymphadenopathy - Respiratory Exam Respiratory Exam: Decreased Breath Sounds - Cardiovascular Exam Cardiovascular Exam: REGULAR RHYTHM - GI/Abdominal Exam GI & Abdominal Exam: Distended, Soft Assessment and Plan (1) Positive RPR test Status: Acute - Assessment and Plan (Free Text) Plan: NEG FTA-ABS NO RX NECESSARY
[2017-07-31] MEDS: Pantoprazole 40 mg EC Tab PO SCH (08:38)
[2017-07-31] MEDS: Enoxaparin 40 mg Syringe SC SCH (08:38)
--- NOTE | 2017-07-31 10:02 | CP.PCM.PN ---
<Chicho Izquierdo - Last Filed: 07/31/17 11:32> Subjective - Date & Time of Evaluation Date of Evaluation: 07/31/17 Time of Evaluation: 10:50 - Subjective Subjective: 86 y/o F seen at bedside in not acute distress this morning. No acute events overnight. Afebrile. Ondergoing daily PT. Denies CP, palpitations, SOB, nausea or vomiting. Objective - Vital Signs/Intake and Output Vital Signs (last 24 hours): Temp Pulse Resp BP Pulse Ox 97.5 F L 80 19 139/73 94 L 07/31/17 08:46 07/31/17 08:46 07/31/17 08:46 07/31/17 08:46 07/31/17 08:46 - Medications Medications: Current Medications Acetaminophen (Tylenol 325mg Tab) 650 mg PO Q6 PRN PRN Reason: Headache Al Hydrox/Mg Hydrox/Simethicone (Maalox Plus 30 Ml) 30 ml PO Q6 PRN PRN Reason: Indigestion / Heartburn Aspirin (Aspirin Chewable) 81 mg PO DAILY [facility] Last Admin: 07/31/17 08:38 Dose: 81 mg Atorvastatin Calcium (Lipitor) 80 mg PO HS [facility] Last Admin: 07/30/17 21:05 Dose: 80 mg Clopidogrel Bisulfate (Plavix) 75 mg PO DAILY [facility] Last Admin: 07/31/17 08:39 Dose: 75 mg Enoxaparin Sodium (Lovenox) 40 mg SC DAILY [facility] PRN Reason: Protocol Last Admin: 07/31/17 08:38 Dose: 40 mg Lisinopril (Zestril) 5 mg PO DAILY [facility] Last Admin: 07/31/17 08:39 Dose: 5 mg Pantoprazole Sodium (Protonix Ec Tab) 40 mg PO DAILY [facility] Last Admin: 07/31/17 08:38 Dose: 40 mg - Labs Labs: 07/29/17 05:30 07/29/17 06:30 - Constitutional Appears: Non-toxic, No Acute Distress - Eye Exam Eye Exam: EOMI - ENT Exam ENT Exam: Mucous Membranes Moist - Neck Exam Neck Exam: Full ROM - Respiratory Exam Respiratory Exam: NORMAL BREATHING PATTERN. absent: Accessory Muscle Use, Respiratory Distress - Extremities Exam Extremities Exam: Normal Inspection - Neurological Exam Neurological Exam: Alert, Awake, Oriented x3 - Psychiatric Exam Psychiatric exam: Normal Affect, Normal Mood - Skin Skin Exam: Normal Color, Warm Assessment and Plan - Assessment and Plan (Free Text) Assessment: 86 y/o F with PMHx of HTN, HLD, and TIA being admitted for rehabilitation. Gait abnormality and generalized weakness -acute rehab unit for post stroke rehab -PT/OT evaluation and treatment -Physiatry on board S/P CVA, acute, ischemic -stable -Strength improved -Brain MRI showed small acute left frontoparietal infarct. No associated mass effect -c/w current plan -Neurology consulted. Will f/u recs DM type 2 -HgbA1c from [facility] records =7.8. -No previous Hx of DM -Accuchecks -Will monitor to see if patient needs pharmacologic treatment while in the hospital -Diet adjusted RPR +(false positive) -RPR +. 1/4 titters -FTA-ABS negative -ID consult, Dr. Calderon appreciated -Patient doesn't need abx HTN -Chronic, controlled -c/w lisinopril 5 mg Hx of HLD -c/w atorvastatin DVT prophylaxis -Lovenox 40 mg SC <Spencer Velez - Last Filed: 08/01/17 06:35> Objective - Vital Signs/Intake and Output Vital Signs (last 24 hours): Temp Pulse Resp BP Pulse Ox 97.9 F 74 20 143/65 96 07/31/17 20:38 07/31/17 20:38 07/31/17 20:38 07/31/17 20:38 07/31/17 20:38 - Medications Medications: Current Medications Acetaminophen (Tylenol 325mg Tab) 650 mg PO Q6 PRN PRN Reason: Headache Al Hydrox/Mg Hydrox/Simethicone (Maalox Plus 30 Ml) 30 ml PO Q6 PRN PRN Reason: Indigestion / Heartburn Aspirin (Aspirin Chewable) 81 mg PO DAILY [facility] Last Admin: 07/31/17 08:38 Dose: 81 mg Atorvastatin Calcium (Lipitor) 80 mg PO HS [facility] Last Admin: 07/31/17 21:51 Dose: 80 mg Clopidogrel Bisulfate (Plavix) 75 mg PO DAILY [facility] Last Admin: 07/31/17 08:39 Dose: 75 mg Enoxaparin Sodium (Lovenox) 40 mg SC DAILY [facility] PRN Reason: Protocol Last Admin: 07/31/17 08:38 Dose: 40 mg Lisinopril (Zestril) 5 mg PO DAILY [facility] Last Admin: 07/31/17 08:39 Dose: 5 mg Pantoprazole Sodium (Protonix Ec Tab) 40 mg PO DAILY [facility] Last Admin: 07/31/17 08:38 Dose: 40 mg - Labs Labs: 07/29/17 05:30 07/29/17 06:30 Attending/Attestation - Attestation I have personally seen and examined this patient.: Yes I have fully participated in the care of the patient.: Yes I have reviewed all pertinent clinical information, including history, physical exam and plan: Yes
--- NOTE | 2017-07-31 17:09 | CP.PCM.PN ---
Subjective - Date & Time of Evaluation Date of Evaluation: 07/31/17 Time of Evaluation: 17:08 - Subjective Subjective: Patient is doing well denies pain or sob looking forward to getting home soon tolerating PT well team conf. tomorrow for d/c planning Objective - Vital Signs/Intake and Output Vital Signs (last 24 hours): Temp Pulse Resp BP Pulse Ox 97.5 F L 74 19 139/73 94 L 07/31/17 08:46 07/31/17 16:42 07/31/17 08:46 07/31/17 08:46 07/31/17 08:46 - Medications Medications: Current Medications Acetaminophen (Tylenol 325mg Tab) 650 mg PO Q6 PRN PRN Reason: Headache Al Hydrox/Mg Hydrox/Simethicone (Maalox Plus 30 Ml) 30 ml PO Q6 PRN PRN Reason: Indigestion / Heartburn Aspirin (Aspirin Chewable) 81 mg PO DAILY [facility] Last Admin: 07/31/17 08:38 Dose: 81 mg Atorvastatin Calcium (Lipitor) 80 mg PO HS [facility] Last Admin: 07/30/17 21:05 Dose: 80 mg Clopidogrel Bisulfate (Plavix) 75 mg PO DAILY [facility] Last Admin: 07/31/17 08:39 Dose: 75 mg Enoxaparin Sodium (Lovenox) 40 mg SC DAILY [facility] PRN Reason: Protocol Last Admin: 07/31/17 08:38 Dose: 40 mg Lisinopril (Zestril) 5 mg PO DAILY [facility] Last Admin: 07/31/17 08:39 Dose: 5 mg Pantoprazole Sodium (Protonix Ec Tab) 40 mg PO DAILY [facility] Last Admin: 07/31/17 08:38 Dose: 40 mg - Labs Labs: 07/29/17 05:30 07/29/17 06:30
[2017-08-01 06:47] LABS: BLOOD UREA NITROGEN 15 mg/dl (7-17); CALCIUM 9.2 mg/dL (8.4-10.2); CARBON DIOXIDE 28 mmol/L (22-30); CHLORIDE 107 mmol/L (98-107); GFR AFRICAN-AMERICAN > 60; GLUCOSE,RANDOM 151 mg/dL (65-105); POTASSIUM 4.1 MMOL/L (3.6-5.0); SODIUM 142 mmol/l (132-148)
[2017-08-01 06:51] LABS: HEMATOCRIT 40.5 % (34.0-47.0); MEAN CORPUSCULAR HEMOGLOBIN 28.2 pg (27.0-31.0); MEAN CORPUSCULAR HGB CONC 32.4 g/dL (33.0-37.0); RED CELL DISTRIBUTION WIDTH 15.8 % (11.5-14.5); WHITE BLOOD COUNT 7.7 K/uL (4.8-10.8)
[2017-08-01] MEDS: Enoxaparin 40 mg Syringe SC SCH (08:06)
[2017-08-01] MEDS: Pantoprazole 40 mg EC Tab PO SCH (08:15)
--- NOTE | 2017-08-01 08:43 | CP.PCM.PN ---
<Chicho Izquierdo - Last Filed: 08/01/17 12:39> Subjective - Date & Time of Evaluation Date of Evaluation: 08/01/17 Time of Evaluation: 12:10 - Subjective Subjective: 86 y/o F seen sitting in WC in not acute distress, reading, no events overnight. Denies CP, SOB, palpitations, changes in urination or stools, headache, paresthesias, acute vision changes. Objective - Vital Signs/Intake and Output Vital Signs (last 24 hours): Temp Pulse Resp BP Pulse Ox 97.9 F 74 20 150/72 96 07/31/17 20:38 07/31/17 20:38 07/31/17 20:38 08/01/17 08:09 07/31/17 20:38 - Medications Medications: Current Medications Acetaminophen (Tylenol 325mg Tab) 650 mg PO Q6 PRN PRN Reason: Headache Al Hydrox/Mg Hydrox/Simethicone (Maalox Plus 30 Ml) 30 ml PO Q6 PRN PRN Reason: Indigestion / Heartburn Aspirin (Aspirin Chewable) 81 mg PO DAILY [facility] Last Admin: 08/01/17 08:10 Dose: 81 mg Atorvastatin Calcium (Lipitor) 80 mg PO HS [facility] Last Admin: 07/31/17 21:51 Dose: 80 mg Clopidogrel Bisulfate (Plavix) 75 mg PO DAILY [facility] Last Admin: 08/01/17 08:09 Dose: 75 mg Enoxaparin Sodium (Lovenox) 40 mg SC DAILY [facility] PRN Reason: Protocol Last Admin: 08/01/17 08:06 Dose: 40 mg Lisinopril (Zestril) 5 mg PO DAILY [facility] Last Admin: 08/01/17 08:09 Dose: 5 mg Pantoprazole Sodium (Protonix Ec Tab) 40 mg PO DAILY [facility] Last Admin: 08/01/17 08:15 Dose: 40 mg - Labs Labs: 08/01/17 05:40 08/01/17 05:40 - Constitutional Appears: Non-toxic, No Acute Distress - ENT Exam ENT Exam: Mucous Membranes Moist - Respiratory Exam Respiratory Exam: Clear to Ausculation Bilateral, NORMAL BREATHING PATTERN. absent: Rales - Cardiovascular Exam Cardiovascular Exam: REGULAR RHYTHM, +S1, +S2. absent: Gallop - GI/Abdominal Exam GI & Abdominal Exam: Soft. absent: Guarding, Tenderness, Rebound - Extremities Exam Extremities Exam: Normal Capillary Refill. absent: Calf Tenderness - Neurological Exam Neurological Exam: Alert, Awake, Oriented x3 - Psychiatric Exam Psychiatric exam: Normal Affect, Normal Mood - Skin Skin Exam: Normal Color, Warm Assessment and Plan - Assessment and Plan (Free Text) Assessment: 86 y/o F with PMHx of HTN, HLD, and TIA being admitted for rehabilitation. Gait abnormality and generalized weakness -acute rehab unit for post stroke rehab -PT/OT evaluation and treatment -Physiatry on board S/P CVA, acute, ischemic -stable -improving -Brain MRI showed small acute left frontoparietal infarct. No associated mass effect -c/w current plan -Neurology consult appreciated DM type 2 -Stable -HgbA1c from [facility] [place] =7.8. -diabetic diet -Patient goal HgbA1c <8. No need for pharmacologic treatment at this time. F/U as outpatient RPR +(false positive) -RPR +. 1/ titters -FTA-ABS negative -ID consult, Dr. Calderon appreciated -Patient doesn't need abx HTN -Chronic, controlled -c/w lisinopril 5 mg DVT prophylaxis -Lovenox 40 mg SC <Spencer Velez - Last Filed: 08/03/17 06:51> Objective - Vital Signs/Intake and Output Vital Signs (last 24 hours): Temp Pulse Resp BP Pulse Ox 96.6 F L 72 20 128/76 96 08/02/17 19:45 08/02/17 19:45 08/02/17 19:45 08/02/17 19:45 08/02/17 19:45 - Medications Medications: Current Medications Acetaminophen (Tylenol 325mg Tab) 650 mg PO Q6 PRN PRN Reason: Headache Al Hydrox/Mg Hydrox/Simethicone (Maalox Plus 30 Ml) 30 ml PO Q6 PRN PRN Reason: Indigestion / Heartburn Aspirin (Aspirin Chewable) 81 mg PO DAILY [facility] Last Admin: 08/02/17 08:05 Dose: 81 mg Atorvastatin Calcium (Lipitor) 80 mg PO HS [facility] Last Admin: 08/02/17 21:13 Dose: 80 mg Clopidogrel Bisulfate (Plavix) 75 mg PO DAILY [facility] Last Admin: 08/02/17 08:06 Dose: 75 mg Enoxaparin Sodium (Lovenox) 40 mg SC DAILY [facility] PRN Reason: Protocol Last Admin: 08/02/17 08:05 Dose: 40 mg Lisinopril (Zestril) 5 mg PO DAILY [facility] Last Admin: 08/02/17 08:06 Dose: 5 mg Pantoprazole Sodium (Protonix Ec Tab) 40 mg PO DAILY [facility] Last Admin: 08/02/17 08:06 Dose: 40 mg - Labs Labs: 08/01/17 05:40 08/01/17 05:40 Attending/Attestation - Attestation I have personally seen and examined this patient.: Yes I have fully participated in the care of the patient.: Yes I have reviewed all pertinent clinical information, including history, physical exam and plan: Yes
--- NOTE | 2017-08-01 13:20 | PSY.TMCNF ---
Nursing - Vital Signs Vital Signs (Last 8 hours): Vital Signs 08/01/17 08/01/17 08/01/17 08:09 09:09 11:02 Temperature 98.1 F 98.1 F Pulse Rate 71 71 Respiratory 20 20 Rate Blood Pressure 150/72 150/72 150/72 O2 Sat by Pulse 97 Oximetry Pain: 0 - Precautions: Precautions: Fall Prevention - Medications/Other Issues Comment: Pt at moderate nutritional risk. goal: Pt to consume 75-100% of meals. Follow-up due on 08/02/2017 - Consults Comment: Podiatry Consult, Dr. Diego - Bladder Management Bladder Pattern: Normal Voiding Method: Toilet Bladder Management: Supervision Frequency of Accidents: 0 - Bowel Management Bowel Pattern: Normal Bowel Management: Supervision Frequency of Accidents: 0 - Transfers Transfers: Contact Guard - ADL's ADL's: Minimal Assistance - Patient/Family Teaching Comments: CARE POST CVA AND SAFETY PRECAUTIONS - Goals/Time Frame Comments: PER MULTIDISCIPLINARY CARE PLAN GOALS - Provider Provider: ELENA HENDERSONN RN CRRN Physical Therapy - Bed Mobility Bed Mobility: Contact Guard - Transfers Wheelchair to Mat: Contact Guard Sit to Stand: Supervision, Contact Guard - Ambulation Level of Assistance: Contact Guard Distance (ft.): 200 Assistive Devices: Single point cane Comment: trial without device and with SPC - Stair Negotiation Stairs: Level of Assistance: Contact Guard Number of Stairs: 12 Stairs: Assistive Devices: Left Handrail, Single point cane - Standing Balance Static Stand: Supervision Dynamic Stand: Contact Guard Assist - Pain Pain (assessed during therapy session): 0 - Insight/Carryover Insight/Carryover: Good - Patient/Family Education Comment: role of OT and rehab, recovery after neurological event, compensatory strategies, training with DME, fall prevention and safety. - Assessment/Plan Assessment: Patient requires close supervision with functional transfers and ADLs secondary to decreased standing balance/tolerance, endurance and cognition. Patient will continue to benefit from skilled OT services 5-6x/week to address above deficits to increase independence for discharge. - Goals Timeframe: 2 weeks Goals: MOD I ADLs. MOD I ADL transfers. MOD I basic home mgmt and light meal prep - Provider Therapist: Margret Lopez PT DPT License Number: [id number] Occupational Therapy - Arousal/Attention/Orientation Level of Consciousness: Awake, Alert, Forgetful Patient Orientation: Person, Place - ADL/IADL Self Feeding: Supervision, Set-up Help Grooming: Supervision, Set-up Help Dressing-Upper Extremity: Supervision, Set-up Help Dressing-Lower Extremity: Contact Guard - Sitting Balance Static Sitting: Independent with upper extremity support Dynamic Sitting: Requires supervision - Transfers Wheelchair to Bed Transfers: Supervision, Verbal Cues, Set-up Help Toilet Transfers: Verbal Cues, Contact Guard Comment: Tub and shower transfers not assessed during the initial evaluation. Will assess in future occupational therapy session as appropriate. - Upper Extremity Status Right Upper Extremity Comment: ROM WFL, MMT 4+/5, impaired FMC Left Upper Extremity Comment: ROM WFL, MMT 4+/5, impaired FMC - Pain Pain (assessed during therapy session): 0 - Insight/Carryover Insight/Carryover: Good - Patient/Family Education Comment: role of OT and rehab, recovery after neurological event, compensatory strategies, training with DME, fall prevention and safety. - Assessment/Plan Assessment: Patient requires close supervision with functional transfers and ADLs secondary to decreased standing balance/tolerance, endurance and cognition. Patient will continue to benefit from skilled OT services 5-6x/week to address above deficits to increase independence for discharge. - Goals Timeframe: 2 weeks Goals: MOD I ADLs. MOD I ADL transfers. MOD I basic home mgmt and light meal prep - Provider Therapist: Simi Kunz License Number: [id number] Speech Therapy - Consult Information Patient on Program: Yes Medical Diagnosis: CVA Treatment Diagnosis: mild cognitive deficits - Assessment Expressive Language Impairment: Mild Memory Impairment: Mild - Plan Assessment: Patient requires close supervision with functional transfers and ADLs secondary to decreased standing balance/tolerance, endurance and cognition. Patient will continue to benefit from skilled OT services 5-6x/week to address above deficits to increase independence for discharge. - Provider Therapist: Rola Cool License Number: [id number] Recreational Therapy - Participation Participation: Participates in Individual and/or Group Sessions - Attendance Attendance: 3-5 times per week - Activities Leisure Activities: Cards and Games - Socialization Level of Socialization: Initiates/interacts freely with care givers and peer - Diversional Time Diversional Time: watching television, word searches, crossword puzzles - Assessment Assessment/Plan: Patient requires close supervision with functional transfers and ADLs secondary to decreased standing balance/tolerance, endurance and cognition. Patient will continue to benefit from skilled OT services 5-6x/week to address above deficits to increase independence for discharge. - Provider Therapist: Mary Cruz, SERVICE DEVELOPER #[id number] Nutrition - Current Diet Current Diet/ Supplement/ Feedings: Moderate consistent CHO heart healthy - Appetite Percent Meal Consumed: 75-100% - Comments Comments: CARE POST CVA AND SAFETY PRECAUTIONS - Assessment/Goals/Time Frame Assessment/Goals/Time Frame: Pt at moderate nutritional risk. goal: Pt to consume 75-100% of meals. Follow-up due on 08/02/2017 - Provider Provider: Mady Bethea RD Case Management - Discharge Plan Discharge Plan: Home with significant other/family Rehabilitation Plan - Discharge Plan Estimated Date of Discharge: 08/05/17 Discharge to: Home
--- NOTE | 2017-08-01 13:50 | CP.PCM.PN ---
Subjective - Date & Time of Evaluation Date of Evaluation: 08/01/17 Time of Evaluation: 13:49 - Subjective Subjective: Patient seen in room present denies sob/cp doing very well in PT/OT and is an excellent patient set for d/c home 08/05/17 Objective - Vital Signs/Intake and Output Vital Signs (last 24 hours): Temp Pulse Resp BP Pulse Ox 98.1 F 71 20 150/72 97 08/01/17 11:02 08/01/17 11:02 08/01/17 11:02 08/01/17 11:02 08/01/17 09:09 - Medications Medications: Current Medications Acetaminophen (Tylenol 325mg Tab) 650 mg PO Q6 PRN PRN Reason: Headache Al Hydrox/Mg Hydrox/Simethicone (Maalox Plus 30 Ml) 30 ml PO Q6 PRN PRN Reason: Indigestion / Heartburn Aspirin (Aspirin Chewable) 81 mg PO DAILY [facility] Last Admin: 08/01/17 08:10 Dose: 81 mg Atorvastatin Calcium (Lipitor) 80 mg PO HS [facility] Last Admin: 07/31/17 21:51 Dose: 80 mg Clopidogrel Bisulfate (Plavix) 75 mg PO DAILY [facility] Last Admin: 08/01/17 08:09 Dose: 75 mg Enoxaparin Sodium (Lovenox) 40 mg SC DAILY [facility] PRN Reason: Protocol Last Admin: 08/01/17 08:06 Dose: 40 mg Lisinopril (Zestril) 5 mg PO DAILY [facility] Last Admin: 08/01/17 08:09 Dose: 5 mg Pantoprazole Sodium (Protonix Ec Tab) 40 mg PO DAILY [facility] Last Admin: 08/01/17 08:15 Dose: 40 mg - Labs Labs: 08/01/17 05:40 08/01/17 05:40
[2017-08-02] MEDS: Enoxaparin 40 mg Syringe SC SCH (08:05)
[2017-08-02] MEDS: Pantoprazole 40 mg EC Tab PO SCH (08:06)
--- NOTE | 2017-08-02 08:38 | CP.PCM.PN ---
<Chicho Izquierdo - Last Filed: 08/02/17 08:40> Subjective - Date & Time of Evaluation Date of Evaluation: 08/02/17 Time of Evaluation: 07:30 - Subjective Subjective: 86 y/o F seen at bedside in good spirits. No significant events overnight. Denies CP, palpitations, SOB at rest, changes in urination or stools. Anticipated DC for 08/05/17. Patient will need HHS after DC. Objective - Vital Signs/Intake and Output Vital Signs (last 24 hours): Temp Pulse Resp BP Pulse Ox 98.2 F 73 20 138/67 97 08/01/17 20:02 08/02/17 08:06 08/01/17 20:02 08/02/17 08:06 08/01/17 20:02 - Medications Medications: Current Medications Acetaminophen (Tylenol 325mg Tab) 650 mg PO Q6 PRN PRN Reason: Headache Al Hydrox/Mg Hydrox/Simethicone (Maalox Plus 30 Ml) 30 ml PO Q6 PRN PRN Reason: Indigestion / Heartburn Aspirin (Aspirin Chewable) 81 mg PO DAILY [facility] Last Admin: 08/02/17 08:05 Dose: 81 mg Atorvastatin Calcium (Lipitor) 80 mg PO HS [facility] Last Admin: 08/01/17 21:23 Dose: 80 mg Clopidogrel Bisulfate (Plavix) 75 mg PO DAILY [facility] Last Admin: 08/02/17 08:06 Dose: 75 mg Enoxaparin Sodium (Lovenox) 40 mg SC DAILY [facility] PRN Reason: Protocol Last Admin: 08/02/17 08:05 Dose: 40 mg Lisinopril (Zestril) 5 mg PO DAILY [facility] Last Admin: 08/02/17 08:06 Dose: 5 mg Pantoprazole Sodium (Protonix Ec Tab) 40 mg PO DAILY [facility] Last Admin: 08/02/17 08:06 Dose: 40 mg - Labs Labs: 08/01/17 05:40 08/01/17 05:40 - Constitutional Appears: Non-toxic, No Acute Distress - Eye Exam Eye Exam: EOMI, PERRL - ENT Exam ENT Exam: Mucous Membranes Moist - Respiratory Exam Respiratory Exam: Clear to Ausculation Bilateral, NORMAL BREATHING PATTERN. absent: Rales, Wheezes, Respiratory Distress - Cardiovascular Exam Cardiovascular Exam: REGULAR RHYTHM, +S1, +S2. absent: Gallop - GI/Abdominal Exam GI & Abdominal Exam: Soft, Normal Bowel Sounds. absent: Guarding, Tenderness - Extremities Exam Extremities Exam: Normal Capillary Refill, Normal Inspection. absent: Calf Tenderness - Neurological Exam Neurological Exam: Alert, Awake, Oriented x3 Additional comments: slight drop of corner of the mouth. R/side. No other significant motor sensory impairment - Psychiatric Exam Psychiatric exam: Normal Affect, Normal Mood - Skin Skin Exam: Normal Color, Warm Assessment and Plan - Assessment and Plan (Free Text) Assessment: 86 y/o F with PMHx of HTN, HLD, and TIA being admitted for rehabilitation. Gait abnormality and generalized weakness -acute rehab unit for post stroke rehab -PT/OT evaluation and treatment -Physiatry on board -Anticipated DC 08/05/17 -Will need HHS after discharge S/P CVA, acute, ischemic -stable -improving -Brain MRI showed small acute left frontoparietal infarct. No associated mass effect -c/w current plan -Neurology consult appreciated DM type 2 -Stable -HgbA1c from [facility] [place] =7.8. -diabetic diet -Patient goal HgbA1c <8. No need for pharmacologic treatment at this time. F/U as outpatient RPR +(false positive) -RPR +. / titters -FTA-ABS negative -ID consult, Dr. Calderon appreciated -Patient doesn't need abx HTN -Chronic, controlled -c/w lisinopril 5 mg DVT prophylaxis -Lovenox 40 mg SC <Jerome Osman A - Last Filed: 08/04/17 07:22> Objective - Vital Signs/Intake and Output Vital Signs (last 24 hours): Temp Pulse Resp BP Pulse Ox 96.6 F L 80 20 137/73 97 08/03/17 19:51 08/03/17 19:51 08/03/17 19:51 08/03/17 19:51 08/03/17 19:51 - Medications Medications: Current Medications Acetaminophen (Tylenol 325mg Tab) 650 mg PO Q6 PRN PRN Reason: Headache Al Hydrox/Mg Hydrox/Simethicone (Maalox Plus 30 Ml) 30 ml PO Q6 PRN PRN Reason: Indigestion / Heartburn Aspirin (Aspirin Chewable) 81 mg PO DAILY [facility] Last Admin: 08/03/17 08:42 Dose: 81 mg Atorvastatin Calcium (Lipitor) 80 mg PO HS [facility] Last Admin: 08/03/17 21:15 Dose: 80 mg Clopidogrel Bisulfate (Plavix) 75 mg PO DAILY [facility] Last Admin: 08/03/17 08:42 Dose: 75 mg Enoxaparin Sodium (Lovenox) 40 mg SC DAILY [facility] PRN Reason: Protocol Last Admin: 08/03/17 08:42 Dose: 40 mg Lisinopril (Zestril) 5 mg PO DAILY [facility] Last Admin: 08/03/17 08:42 Dose: 5 mg Pantoprazole Sodium (Protonix Ec Tab) 40 mg PO DAILY [facility] Last Admin: 08/03/17 08:42 Dose: 40 mg - Labs Labs: 08/01/17 05:40 08/01/17 05:40 Attending/Attestation - Attestation I have personally seen and examined this patient.: Yes I have fully participated in the care of the patient.: Yes I have reviewed all pertinent clinical information, including history, physical exam and plan: Yes
[2017-08-03] MEDS: Pantoprazole 40 mg EC Tab PO SCH (08:42)
[2017-08-03] MEDS: Enoxaparin 40 mg Syringe SC SCH (08:42)
--- NOTE | 2017-08-03 10:13 | CP.PCM.PN ---
<Chicho Izquierdo - Last Filed: 08/03/17 10:17> Subjective - Date & Time of Evaluation Date of Evaluation: 08/03/17 Time of Evaluation: 07:10 - Subjective Subjective: 86 y/o F seen at bedside in not acute distress. Denies CP, palpitations, SOB, headache, paresthesias. BS controlled. Anticipated DC 08/05/17 with home services Objective - Vital Signs/Intake and Output Vital Signs (last 24 hours): Temp Pulse Resp BP Pulse Ox 97.7 F 72 18 130/67 100 08/03/17 07:48 08/03/17 08:42 08/03/17 07:48 08/03/17 08:42 08/03/17 07:48 - Medications Medications: Current Medications Acetaminophen (Tylenol 325mg Tab) 650 mg PO Q6 PRN PRN Reason: Headache Al Hydrox/Mg Hydrox/Simethicone (Maalox Plus 30 Ml) 30 ml PO Q6 PRN PRN Reason: Indigestion / Heartburn Aspirin (Aspirin Chewable) 81 mg PO DAILY [facility] Last Admin: 08/03/17 08:42 Dose: 81 mg Atorvastatin Calcium (Lipitor) 80 mg PO HS [facility] Last Admin: 08/02/17 21:13 Dose: 80 mg Clopidogrel Bisulfate (Plavix) 75 mg PO DAILY [facility] Last Admin: 08/03/17 08:42 Dose: 75 mg Enoxaparin Sodium (Lovenox) 40 mg SC DAILY [facility] PRN Reason: Protocol Last Admin: 08/03/17 08:42 Dose: 40 mg Lisinopril (Zestril) 5 mg PO DAILY [facility] Last Admin: 08/03/17 08:42 Dose: 5 mg Pantoprazole Sodium (Protonix Ec Tab) 40 mg PO DAILY [facility] Last Admin: 08/03/17 08:42 Dose: 40 mg - Labs Labs: 08/01/17 05:40 08/01/17 05:40 - Constitutional Appears: Non-toxic, No Acute Distress - Eye Exam Eye Exam: EOMI, PERRL - ENT Exam ENT Exam: Mucous Membranes Moist - Respiratory Exam Respiratory Exam: Clear to Ausculation Bilateral, NORMAL BREATHING PATTERN. absent: Rales, Wheezes - Cardiovascular Exam Cardiovascular Exam: REGULAR RHYTHM, +S1, +S2. absent: Gallop - GI/Abdominal Exam GI & Abdominal Exam: Soft, Normal Bowel Sounds. absent: Tenderness - Extremities Exam Extremities Exam: Normal Capillary Refill. absent: Calf Tenderness, Pedal Edema - Neurological Exam Neurological Exam: Alert, Awake, Oriented x3 Additional comments: Slight drop corner of the mouth. R/side - Psychiatric Exam Psychiatric exam: Normal Affect, Normal Mood - Skin Skin Exam: Normal Color, Warm Assessment and Plan - Assessment and Plan (Free Text) Assessment: 86 y/o F with PMHx of HTN, HLD, and TIA being admitted for rehabilitation. Gait abnormality and generalized weakness -acute rehab unit for post stroke rehab -PT/OT evaluation and treatment -Physiatry on board -Anticipated DC 08/05/17 -Will need HHS after discharge S/P CVA, acute, ischemic -stable -improving -Brain MRI showed small acute left frontoparietal infarct. No associated mass effect -c/w current plan -Neurology consult appreciated DM type 2 -Stable -HgbA1c from [facility] [place] records =7.8. -diabetic diet -Patient goal HgbA1c <8. No need for pharmacologic treatment at this time. F/U as outpatient RPR +(false positive) -RPR +. 09/21 titters -FTA-ABS negative -ID consult, Dr. Calderon appreciated -Patient doesn't need abx HTN -Chronic, controlled -c/w lisinopril 5 mg DVT prophylaxis -Lovenox 40 mg SC <Spencer Velez - Last Filed: 08/04/17 06:47> Objective - Vital Signs/Intake and Output Vital Signs (last 24 hours): Temp Pulse Resp BP Pulse Ox 96.6 F L 80 20 137/73 97 08/03/17 19:51 08/03/17 19:51 08/03/17 19:51 08/03/17 19:51 08/03/17 19:51 - Medications Medications: Current Medications Acetaminophen (Tylenol 325mg Tab) 650 mg PO Q6 PRN PRN Reason: Headache Al Hydrox/Mg Hydrox/Simethicone (Maalox Plus 30 Ml) 30 ml PO Q6 PRN PRN Reason: Indigestion / Heartburn Aspirin (Aspirin Chewable) 81 mg PO DAILY [facility] Last Admin: 08/03/17 08:42 Dose: 81 mg Atorvastatin Calcium (Lipitor) 80 mg PO HS [facility] Last Admin: 11/16/17 21:15 Dose: 80 mg Clopidogrel Bisulfate (Plavix) 75 mg PO DAILY [facility] Last Admin: 08/03/17 08:42 Dose: 75 mg Enoxaparin Sodium (Lovenox) 40 mg SC DAILY [facility] PRN Reason: Protocol Last Admin: 08/03/17 08:42 Dose: 40 mg Lisinopril (Zestril) 5 mg PO DAILY [facility] Last Admin: 08/03/17 08:42 Dose: 5 mg Pantoprazole Sodium (Protonix Ec Tab) 40 mg PO DAILY [facility] Last Admin: 08/03/17 08:42 Dose: 40 mg - Labs Labs: 08/01/17 05:40 08/01/17 05:40 Attending/Attestation - Attestation I have personally seen and examined this patient.: Yes I have fully participated in the care of the patient.: Yes I have reviewed all pertinent clinical information, including history, physical exam and plan: Yes
--- NOTE | 2017-08-03 18:09 | CP.PCM.PN ---
Subjective - Date & Time of Evaluation Date of Evaluation: 08/03/17 Time of Evaluation: 18:08 - Subjective Subjective: Patient doing well set for d/c now for Monday morning, which is fine as they will have an extra day of rehab continue current care Objective - Vital Signs/Intake and Output Vital Signs (last 24 hours): Temp Pulse Resp BP Pulse Ox 97.7 F 72 18 130/67 100 08/03/17 07:48 08/03/17 08:42 08/03/17 07:48 08/03/17 08:42 08/03/17 07:48 - Medications Medications: Current Medications Acetaminophen (Tylenol 325mg Tab) 650 mg PO Q6 PRN PRN Reason: Headache Al Hydrox/Mg Hydrox/Simethicone (Maalox Plus 30 Ml) 30 ml PO Q6 PRN PRN Reason: Indigestion / Heartburn Aspirin (Aspirin Chewable) 81 mg PO DAILY [facility] Last Admin: 08/03/17 08:42 Dose: 81 mg Atorvastatin Calcium (Lipitor) 80 mg PO HS [facility] Last Admin: 08/02/17 21:13 Dose: 80 mg Clopidogrel Bisulfate (Plavix) 75 mg PO DAILY [facility] Last Admin: 08/03/17 08:42 Dose: 75 mg Enoxaparin Sodium (Lovenox) 40 mg SC DAILY [facility] PRN Reason: Protocol Last Admin: 08/03/17 08:42 Dose: 40 mg Lisinopril (Zestril) 5 mg PO DAILY [facility] Last Admin: 08/03/17 08:42 Dose: 5 mg Pantoprazole Sodium (Protonix Ec Tab) 40 mg PO DAILY [facility] Last Admin: 08/03/17 08:42 Dose: 40 mg - Labs Labs: 08/01/17 05:40 08/01/17 05:40
[2017-08-04] MEDS: Enoxaparin 40 mg Syringe SC SCH (08:36)
[2017-08-04] MEDS: Pantoprazole 40 mg EC Tab PO SCH (08:37)
--- NOTE | 2017-08-04 09:05 | CP.PCM.PN ---
Subjective - Date & Time of Evaluation Date of Evaluation: 08/04/17 Time of Evaluation: 07:30 - Subjective Subjective: 86 y/o F seen at bedside no acute distress, no events overnight, denies CP, SOB , palpitations, abd pain, nausea, vomiting. Afebrile. Objective - Vital Signs/Intake and Output Vital Signs (last 24 hours): Temp Pulse Resp BP Pulse Ox 97.2 F L 71 20 121/71 97 08/04/17 08:04 08/04/17 08:37 08/04/17 08:04 08/04/17 08:37 08/04/17 08:04 - Medications Medications: Current Medications Acetaminophen (Tylenol 325mg Tab) 650 mg PO Q6 PRN PRN Reason: Headache Al Hydrox/Mg Hydrox/Simethicone (Maalox Plus 30 Ml) 30 ml PO Q6 PRN PRN Reason: Indigestion / Heartburn Aspirin (Aspirin Chewable) 81 mg PO DAILY [facility] Last Admin: 08/04/17 08:36 Dose: 81 mg Atorvastatin Calcium (Lipitor) 80 mg PO HS [facility] Last Admin: 08/03/17 21:15 Dose: 80 mg Clopidogrel Bisulfate (Plavix) 75 mg PO DAILY [facility] Last Admin: 08/04/17 08:36 Dose: 75 mg Enoxaparin Sodium (Lovenox) 40 mg SC DAILY [facility] PRN Reason: Protocol Last Admin: 08/04/17 08:36 Dose: 40 mg Lisinopril (Zestril) 5 mg PO DAILY [facility] Last Admin: 08/04/17 08:37 Dose: 5 mg Pantoprazole Sodium (Protonix Ec Tab) 40 mg PO DAILY [facility] Last Admin: 08/04/17 08:37 Dose: 40 mg - Labs Labs: 08/01/17 05:40 08/01/17 05:40 - Constitutional Appears: Non-toxic, No Acute Distress - Eye Exam Eye Exam: EOMI, PERRL - ENT Exam ENT Exam: Mucous Membranes Moist - Respiratory Exam Respiratory Exam: Clear to Ausculation Bilateral, NORMAL BREATHING PATTERN. absent: Rales, Wheezes - GI/Abdominal Exam GI & Abdominal Exam: Soft, Normal Bowel Sounds. absent: Distended, Guarding, Tenderness - Extremities Exam Extremities Exam: Normal Capillary Refill. absent: Calf Tenderness, Joint Swelling - Neurological Exam Neurological Exam: Alert, Awake, Oriented x3 Additional comments: Able to walk with walker. No significant motor impairment - Psychiatric Exam Psychiatric exam: Normal Affect, Normal Mood - Skin Skin Exam: Normal Color, Warm Assessment and Plan - Assessment and Plan (Free Text) Assessment: 86 y/o F with PMHx of HTN, HLD, and TIA being admitted for rehabilitation. Gait abnormality and generalized weakness -acute rehab unit for post stroke rehab -PT/OT evaluation and treatment -Physiatry on board -Anticipated DC 08/06/17 -Will need HHS after discharge S/P CVA, acute, ischemic -stable -improving -Brain MRI showed small acute left frontoparietal infarct. No associated mass effect -c/w current plan -Neurology consult appreciated DM type 2 -Stable [place] [facility]7.8. -diabetic diet -Patient goal HgbA1c <8. No need for pharmacologic treatment at this time. F/U as outpatient HTN -Chronic, controlled -c/w lisinopril 5 mg DVT prophylaxis -Lovenox 40 mg SC
--- NOTE | 2017-08-04 14:52 | CP.PCM.PN ---
Subjective - Date & Time of Evaluation Date of Evaluation: 08/04/17 Time of Evaluation: 11:00 - Subjective Subjective: no acute complaints at present Objective - Vital Signs/Intake and Output Vital Signs (last 24 hours): Temp Pulse Resp BP Pulse Ox 97.2 F L 71 20 121/71 97 08/04/17 08:04 08/04/17 08:37 08/04/17 08:04 08/04/17 08:37 08/04/17 08:04 - Medications Medications: Current Medications Acetaminophen (Tylenol 325mg Tab) 650 mg PO Q6 PRN PRN Reason: Headache Al Hydrox/Mg Hydrox/Simethicone (Maalox Plus 30 Ml) 30 ml PO Q6 PRN PRN Reason: Indigestion / Heartburn Aspirin (Aspirin Chewable) 81 mg PO DAILY [facility] Last Admin: 08/04/17 08:36 Dose: 81 mg Atorvastatin Calcium (Lipitor) 80 mg PO HS [facility] Last Admin: 08/03/17 21:15 Dose: 80 mg Clopidogrel Bisulfate (Plavix) 75 mg PO DAILY [facility] Last Admin: 08/04/17 08:36 Dose: 75 mg Enoxaparin Sodium (Lovenox) 30 mg SC DAILY [facility] PRN Reason: Protocol Lisinopril (Zestril) 5 mg PO DAILY [facility] Last Admin: 08/04/17 08:37 Dose: 5 mg Pantoprazole Sodium (Protonix Ec Tab) 40 mg PO DAILY [facility] Last Admin: 08/04/17 08:37 Dose: 40 mg - Labs Labs: 08/01/17 05:40 08/01/17 05:40 - Head Exam Head Exam: ATRAUMATIC, NORMAL INSPECTION, NORMOCEPHALIC - Eye Exam Eye Exam: EOMI, Normal appearance, PERRL Pupil Exam: NORMAL ACCOMODATION - ENT Exam ENT Exam: Mucous Membranes Moist, Normal Exam - Neck Exam Neck Exam: Full ROM, Normal Inspection - Respiratory Exam Respiratory Exam: NORMAL BREATHING PATTERN - Cardiovascular Exam Cardiovascular Exam: REGULAR RHYTHM - GI/Abdominal Exam GI & Abdominal Exam: Soft, Normal Bowel Sounds - Rectal Exam Rectal Exam: NORMAL INSPECTION - Exam External exam: NORMAL EXTERNAL EXAM - Extremities Exam Extremities Exam: Full ROM, Normal Capillary Refill, Normal Inspection - Back Exam Back Exam: NORMAL INSPECTION - Neurological Exam Neurological Exam: Alert, Awake Neuro motor strength exam: Left Upper Extremity: 3, Right Upper Extremity: 3, Left Lower Extremity: 3, Right Lower Extremity: 3 - Psychiatric Exam Psychiatric exam: Normal Affect, Normal Mood - Skin Skin Exam: Dry, Intact Assessment and Plan - Assessment and Plan (Free Text) Assessment: acute cva, Htn, Tia Plan: Cva, HLD, RPR TIA plan for physical, occupational, rec therapy covering for DR. Diego
[2017-08-05 07:56] LABS: HEMATOCRIT 38.2 % (34.0-47.0); MEAN CELL VOLUME 87.2 fl (81.0-99.0); MEAN CORPUSCULAR HEMOGLOBIN 28.4 pg (27.0-31.0); MEAN CORPUSCULAR HGB CONC 32.5 g/dL (33.0-37.0); RED CELL DISTRIBUTION WIDTH 15.8 % (11.5-14.5); WHITE BLOOD COUNT 6.4 K/uL (4.8-10.8)
[2017-08-05 08:05] LABS: BLOOD UREA NITROGEN 15 mg/dl (7-17); CALCIUM 8.9 mg/dL (8.4-10.2); CARBON DIOXIDE 28 mmol/L (22-30); CHLORIDE 107 mmol/L (98-107); GFR AFRICAN-AMERICAN > 60; GLUCOSE,RANDOM 132 mg/dL (65-105); POTASSIUM 3.9 MMOL/L (3.6-5.0); SODIUM 142 mmol/l (132-148)
[2017-08-05] MEDS: Pantoprazole 40 mg EC Tab PO SCH (09:00)
[2017-08-05] MEDS: Enoxaparin 30 mg Syringe SC SCH (09:37)
--- NOTE | 2017-08-05 16:18 | PN ---
NEUROLOGY PROGRESS NOTE DATE: SUBJECTIVE: The patient is lying on the bed, in no acute distress. Denies any headache or dizziness. PHYSICAL EXAMINATION: VITAL SIGNS: Her blood pressure is 131/64, heart rate is 74 per minute, breathing at the rate of 16 per minute, temperature is 97.8 degrees Fahrenheit. HEENT: Head is normocephalic and atraumatic. NECK: Supple. There are no carotid bruit. LUNGS: Clear. CARDIOVASCULAR SYSTEM: S1 and S2 audible. No murmurs. ABDOMEN: Soft and nontender. Bowel sounds are present. NEUROLOGY: Mental status: The patient is awake and alert, oriented to time, place and person. Speech is fluent. Naming and repetition normal. Memory and cognition are intact. Cranial nerve examination: Pupils 3 mm bilaterally reactive to light. Visual mcleod are full. Extraocular movements are intact. There is mild decreased nasolabial fold on the right side. Tongue is midline. Motor examination: Tone is normal. Power is 5/5 bilaterally in all extremities. [id number] shows no dysmetria. LABORATORY DATA: Labs reviewed, which shows WBC of 6.4, hemoglobin 12.4, hematocrit of 38.2 and platelets of 177. Sodium is 142, potassium 3.9, chloride is 107, carbon dioxide 28, BUN 15, creatinine 1.0 and glucose of 132. IMPRESSION: 1. Cerebrovascular accident. 2. Positive RPR with a negative FTA, fluorescent treponemal antibody. RECOMMENDATION: 1. The patient has shown improvement in her right-sided weakness. 2. The patient to be continued on aspirin and Plavix. 3. The patient will also be continued on high-dose statin. 4. The patient's blood pressure is better controlled. 5. The patient to continue to have physical therapy. 6. Please continue supportive care and other treatment. Thank you for the opportunity to participate in the care of this patient. Kobe Peck MD
[2017-08-05 20:33] VITALS: RESP 20
--- NOTE | 2017-08-05 22:44 | PN ---
DATE: PHYSIATRY PROGRESS NOTE SUBJECTIVE: The patient is doing fine. No acute complaints noted at present. An 86-year-old female for acute inpatient rehab program. PHYSICAL EXAMINATION: VITAL SIGNS: Stable. NECK: Supple. CHEST: Symmetrical. HEART: Sounds S1 and S2. ABDOMEN: Area is benign. EXTREMITIES: No clubbing, cyanosis, or edema. IMPRESSION: Acute cerebrovascular accident, ICD code of 01.2; hypertension; RPR; transient ischemic attack. PLAN: For physical therapy, occupational therapy, recreational therapy, and speech therapy; patient for range of motion, strengthening, transverse ambulation, and gait training. Donnie José MD
[2017-08-06 08:46] VITALS: BP 128/70; PULSE 70
[2017-08-06] MEDS: Pantoprazole 40 mg EC Tab PO SCH (08:46)
[2017-08-06] MEDS: Enoxaparin 30 mg Syringe SC SCH (08:46)
--- NOTE | 2017-08-06 09:49 | CP.PCM.DIS ---
Provider - Provider Date of Admission: 07/25/17 22:11 Attending physician: Jerome Osman MD Primary care physician: Jerome Osman MD [facility] Course - Lab Results Lab Results: Most Recent Lab Values WBC 6.4 K/uL (4.8-10.8) 08/05/17 07:00 RBC 4.37 Mil/uL (3.80-5.20) 08/05/17 07:00 Hgb 12.4 g/dL (12.0-16.0) 08/05/17 07:00 Hct 38.2 % (34.0-47.0) 08/05/17 07:00 MCV 87.2 fl (81.0-99.0) 08/05/17 07:00 MCH 28.4 pg (27.0-31.0) 08/05/17 07:00 MCHC 32.5 g/dL (33.0-37.0) L 08/05/17 07:00 RDW 15.8 % (11.5-14.5) H 08/05/17 07:00 Plt Count 177 K/uL (130-400) 08/05/17 07:00 Sodium 142 mmol/l (132-148) 08/05/17 07:00 Potassium 3.9 MMOL/L (3.6-5.0) 08/05/17 07:00 Chloride 107 mmol/L (98-107) 08/05/17 07:00 Carbon Dioxide 28 mmol/L (22-30) 08/05/17 07:00 Anion Gap 11 (10-20) 08/05/17 07:00 BUN 15 mg/dl (7-17) 08/05/17 07:00 Creatinine 1.0 mg/dl (0.7-1.2) 08/05/17 07:00 Est GFR ( Amer) > 60 08/05/17 07:00 Est GFR (Non-Af Amer) 53 08/05/17 07:00 POC Glucose (mg/dL) 138 mg/dL (65-110) H 08/05/17 06:32 Random Glucose 132 mg/dL (65-105) H 08/05/17 07:00 Calcium 8.9 mg/dL (8.4-10.2) 08/05/17 07:00 RPR Titer 1:4 (NONREACTIVE) H 07/26/17 12:30 RPR Reactive (NONREACTIVE) H 07/26/17 12:30 T.pallidum Ab (FTA-ABS) Nonreactive (Nonreactive) 07/26/17 12:30 Discharge Exam - Head Exam Head Exam: ATRAUMATIC, NORMAL INSPECTION, NORMOCEPHALIC Discharge Plan - Follow Up Plan Condition: GOOD Disposition: HOME/ ROUTINE Instructions: Lisinopril (By mouth), Aspirin (By mouth), Atorvastatin (By mouth ), Clopidogrel (By mouth), Pantoprazole (By mouth), Transient Ischemic Attack ( DC), Hyperlipidemia (DC), Stroke (DC) Referrals: Jerome Osman MD [Primary Care Provider] -
[2017-08-06 10:54] VITALS: TEMP 97.6; O2SAT 96
== END 2017-08-06 13:25 | disposition home health service (06) | DRG 57 ==
PROVIDERS: ADMIT Family Medicine; ATTEND Family Medicine
PROC: F07M6FZ Therapeutic Exercise Treatment of Musculoskeletal System - Whole Body using Assistive, Adaptive, Supportive or Protective Equipment (ICD-10-PCS; principal; 2017-07-25)
PROC: F08Z4FZ Home Management Treatment using Assistive, Adaptive, Supportive or Protective Equipment (ICD-10-PCS; 2017-07-25)
PROC: F07Z9FZ Gait Training/Functional Ambulation Treatment using Assistive, Adaptive, Supportive or Protective Equipment (ICD-10-PCS; 2017-07-25)
DX: I69.359 Hemiplegia and hemiparesis following cerebral infarction affecting unspecified side (principal); E11.9 Type 2 diabetes mellitus without complications; A53.0 Latent syphilis, unspecified as early or late; E78.00 Pure hypercholesterolemia, unspecified; E78.5 Hyperlipidemia, unspecified; I10 Essential (primary) hypertension; Z79.899 Other long term (current) drug therapy; Z86.73 Personal history of transient ischemic attack (TIA), and cerebral infarction without residual deficits; Z90.49 Acquired absence of other specified parts of digestive tract; Z90.710 Acquired absence of both cervix and uterus; R26.9 Unspecified abnormalities of gait and mobility